=== PATIENT | male | born 1940 | race Caucasian/White ===

== ENCOUNTER 2016-12-23 01:52 | Emergency (ER) | payer MEDICARE ==
[~2016-12-23] VITALS: Ht 182.9 cm; Wt 100.8 kg
[~2016-12-23 01:52] MED LIST: ASPI81TA50 PO; CARV6.252 PO; CHOL500015 PO; FEBU80TA2 PO; NIAC500T10 PO; PANT40TA5 PO; ROSU10TA PO; UBID100C19 PO; VALS1TAB24 PO
[2016-12-23] MEDS ORDERED: CARV12.543 PO (02:21)
[2016-12-23] MEDS ORDERED: TAMS-11 PO (02:22)
[2016-12-23 02:27] LABS: HEMOGLOBIN 12.3 g/dL (13.7-18.0)
[2016-12-23] MEDS ORDERED: NITROGLYCERIN OINT 2%, 1GM TP ONE ×2 (02:28→02:30)
[2016-12-23 02:39] LABS: BLOOD UREA NITROGEN 22 mg/dL (7-18)
[2016-12-23 02:47] LABS: IS PT STATUS REG ER OR PRE ER? YES
[2016-12-23] MEDS ORDERED: LORazepam 1MG TABLET PO ONE (03:00)
[2016-12-23] MEDS ORDERED: LORazepam 1MG TABLET ONE (03:06)
[2016-12-23 03:20] VITALS: BP 126/69
== END 2016-12-23 03:24 | disposition home or self-care (01) ==
LOC: ED 03:19
DX: I10 Essential (primary) hypertension (principal); R07.89 Other chest pain; F41.1 Generalized anxiety disorder
CPT/HCPCS: 36415; 71010; 80048; 82040; 84484; 85025; 93005

== ENCOUNTER → 2017-01-03 | Outpatient (CLI) | payer MEDICARE ==
[~2017-01-03] MED LIST changes: +CARV12.543 PO; +TAMS-11 PO
== END | disposition home or self-care (01) ==
LOC: CVU 08:13
PROVIDERS: ATTEND Internal Medicine
DX: I12.9 Hypertensive chronic kidney disease with stage 1 through stage 4 chronic kidney disease, or unspecified chronic kidney disease (principal); N18.2 Chronic kidney disease, stage 2 (mild); I25.9 Chronic ischemic heart disease, unspecified; I25.10 Atherosclerotic heart disease of native coronary artery without angina pectoris; I74.5 Embolism and thrombosis of iliac artery; I37.1 Nonrheumatic pulmonary valve insufficiency; I08.2 Rheumatic disorders of both aortic and tricuspid valves; I65.23 Occlusion and stenosis of bilateral carotid arteries; M25.559 Pain in unspecified hip; Z95.5 Presence of coronary angioplasty implant and graft
CPT/HCPCS: 93306; 93978

== ENCOUNTER → 2017-11-01 | Outpatient (CLI) | payer MEDICARE ==
[~2017-11-01] MED LIST changes: +GADOBUTROL 10 MMOL/10 ML PFS ONE
== END ==
LOC: CFH 12:50
PROVIDERS: ATTEND Internal Medicine Cardiovascular Disease
DX: G31.9 Degenerative disease of nervous system, unspecified (principal)
CPT/HCPCS: 70553; 82565; A9585

== ENCOUNTER 2018-04-06 07:23 | Day surgery (SDC) | payer MEDICARE ==
[~2018-04-06] VITALS: Ht 182.9 cm; Wt 100.0 kg
[~2018-04-06 07:23] MED LIST changes: -GADOBUTROL 10 MMOL/10 ML PFS ONE
[2018-04-06] MEDS ORDERED: SODIUM BICARB 8.4%,50ML SYR. 150 MEQ in DEXTROSE 5% 1,000 ML IV SCH (07:54)
[2018-04-06 08:00] VITALS: BP 156/82
[2018-04-06] MEDS ORDERED: ASPIRIN 325 MG TABLET EC PO ONE (08:00)
[2018-04-06] MEDS ORDERED: PARO10TA3 PO (08:25)
[2018-04-06] MEDS ORDERED: DILT120C80 PO (08:25)
[2018-04-06] MEDS ORDERED: ASCO500T8 PO (08:25)
[2018-04-06] MEDS ORDERED: VALS160T3 PO (08:25)
[2018-04-06] MEDS ORDERED: NITR0.4T28 SL (08:25)
[2018-04-06] MEDS ORDERED: LACT1CAP43 PO (08:25)
[2018-04-06] MEDS ORDERED: LORA0.5T PO (08:25)
[2018-04-06] MEDS ORDERED: ASPIRIN 325 MG TABLET EC ONE (08:32)
[2018-04-06 08:36] LABS: ANION GAP 6 mmol/L (5-15); CALCIUM 8.7 mg/dL (8.5-10.1); CHLORIDE 104 mmol/L (98-107); CREATININE 1.12 mg/dL (0.7-1.3)
[2018-04-06 08:42] LABS: BASOPHILS # (AUTO) 0.06 x10^3/uL (0-0.1); BASOPHILS % (AUTO) 1 % (0-1); EOSINOPHILS # (AUTO) 0.22 x10^3/uL (0-0.4); EOSINOPHILS % (AUTO) 3 % (1-7); LYMPHOCYTES # (AUTO) 2.35 x10^3/uL (1-3.4); LYMPHOCYTES % (AUTO) 33 % (22-44); MD SCAN; MEAN CORPUSCULAR HEMOGLOBIN 31.3 pg (27.5-34.5); MEAN CORPUSCULAR HGB CONC 33.7 g/dL (33.2-36.2); MEAN PLATELET VOLUME 8.6 fL (7.4-10.4); MONOCYTES # (AUTO) 0.73 x10^3/uL (0.2-0.8); MONOCYTES % (AUTO) 10 % (2-9); NEUTROPHILS # (AUTO) 3.75 x10^3/uL (1.8-6.8); NEUTROPHILS % (AUTO) 53 % (42-75); PLATELET COUNT 245 x10^3/uL (130-400); RED BLOOD COUNT 4.16 x10^6/uL (4.38-5.82); RED CELL DISTRIBUTION WIDTH 13.7 % (9.4-14.8)
[2018-04-06] MEDS ORDERED: FENTANYL PF 100 MCG/2ML ONE (09:35)
[2018-04-06] MEDS ORDERED: BIVALIRUDIN 250 MG ONE (09:35)
[2018-04-06] MEDS ORDERED: MIDAZOLAM 1 MG/ML, 5ML ONE (09:35)
[2018-04-06] MEDS ORDERED: TICAGRELOR 90 MG TABLET ONE (09:35)
[2018-04-06] MEDS ORDERED: NITROGLYCERIN 5 MG/ML, 10ML ONE (09:35)
[2018-04-06] MEDS ORDERED: LIDOCAINE/PF 1%, 30ML ONE (09:35)
[2018-04-06] MEDS ORDERED: VERAPAMIL 2.5 MG/ML, 2ML ONE (09:50)
[2018-04-06] MEDS ORDERED: HEPARIN 1,000 UNITS/ML, 10ML ONE (10:11)
[2018-04-06] MEDS ORDERED: SODIUM CHLORIDE 0.9% 1,000 ML IV SCH (11:04)
== END 2018-04-06 13:00 | disposition home or self-care (01) ==
LOC: CACL 07:23
PROVIDERS: ATTEND Internal Medicine Cardiovascular Disease
DX: I25.10 Atherosclerotic heart disease of native coronary artery without angina pectoris (principal); E78.5 Hyperlipidemia, unspecified; I10 Essential (primary) hypertension; M10.9 Gout, unspecified; D64.9 Anemia, unspecified; K58.9 Irritable bowel syndrome, unspecified; F41.9 Anxiety disorder, unspecified; Z95.5 Presence of coronary angioplasty implant and graft; Z79.82 Long term (current) use of aspirin; Z79.899 Other long term (current) drug therapy; Z88.1 Allergy status to other antibiotic agents; Z88.8 Allergy status to other drugs, medicaments and biological substances; Z85.828 Personal history of other malignant neoplasm of skin
CPT/HCPCS: 36415; 80048; 85025; 93458; 93571; 99156; 99157; C1769; C1894; J1644; J2250; J3010; J3490; J7070; Q9967; J0583

== ENCOUNTER → 2019-02-28 | Outpatient (CLI) | payer MEDICARE ==
[~2019-02-28] MED LIST changes: +ASCO500T8 PO; +DILT120C80 PO; +LACT1CAP43 PO; +LORA0.5T PO; +NITR0.4T28 SL; +PARO10TA3 PO; -ROSU10TA PO; +ROSU10TA2 PO; +UBID100C10 PO; -UBID100C19 PO; +VALS160T3 PO
== END | disposition home or self-care (01) ==
LOC: CVU 07:44
PROVIDERS: ATTEND Internal Medicine Cardiovascular Disease
DX: I70.0 Atherosclerosis of aorta (principal); E11.9 Type 2 diabetes mellitus without complications; E78.5 Hyperlipidemia, unspecified; I25.10 Atherosclerotic heart disease of native coronary artery without angina pectoris; Z95.5 Presence of coronary angioplasty implant and graft
CPT/HCPCS: 93978